=== PATIENT | female | born 1980 | race Caucasian/White ===

== ENCOUNTER 2018-02-09 18:06 | Emergency (ER) | payer SELFPAY ==
--- NOTE | 2018-02-09 18:50 | EDM.PDOC ---
ED HPI GENERAL MEDICAL PROBLEM - General Chief Complaint: Lower Extremity Injury/Pain Stated Complaint: RIGHT KNEE PAIN Time Seen by Provider: 02/09/18 18:20 Source of Information: Reports: Patient History Limitations: Reports: No Limitations - History of Present Illness INITIAL COMMENTS - FREE TEXT/NARRATIVE: c/o b/l knee pain x 2w long h/o knee pain, had lived in [place], had x-rays and MRIs done there, dx with "bone spurs" had been on [employer], now living in [place], will have [place] insurance soon off of her trazodone and SSRI, planning on seeing a local PCP not taking meds for her knee pain, hurts mainly when on her feet works 11a to 5p at [employer], begins to limp 4h into her shift use of APAP and ibuprofen reviewed not using street drugs Review of Systems - Review of Systems Review Of Systems: See Below Constitutional: Reports: No Symptoms Eyes: Reports: No Symptoms Ears: Reports: No Symptoms Nose: Reports: No Symptoms Mouth/Throat: Reports: No Symptoms Respiratory: Reports: No Symptoms Cardiovascular: Reports: No Symptoms GI/Abdominal: Reports: No Symptoms Genitourinary: Reports: No Symptoms Musculoskeletal: Reports: Other (b/l knee pain) Skin: Reports: No Symptoms Neurological: Reports: No Symptoms Psychiatric: Reports: No Symptoms ED EXAM, GENERAL - Physical Exam Exam: See Below Exam Limited By: No Limitations General Appearance: Alert, WD/WN, No Apparent Distress Head: Atraumatic, Normocephalic Neck: Normal Inspection, Supple, Non-Tender, Full Range of Motion Respiratory/Chest: No Respiratory Distress, Lungs Clear Cardiovascular: Regular Rate, Rhythm Extremities: Other (inc'd adipose tissue in thighs, less so in calves, fairly normal circumference at knees, no effusions, no ligament laxity, mild tender on patellar compression and at medial facets b/l, MCL/LCL NT) Neurological: Alert, Oriented, CN II-XII Intact, Normal Cognition, No Motor/ Sensory Deficits Psychiatric: Normal Affect, Normal Mood Skin Exam: Warm, Dry, Intact, Normal Color, No Rash Lymphatic: No Adenopathy Departure - Departure Time of Disposition: 18:49 Disposition: Home, Self-Care 01 Condition: Good Clinical Impression: Patellofemoral syndrome of both knees - Discharge Information Instructions: Patellofemoral Pain Syndrome Referrals: PCP,None [Primary Care Provider] - Additional Instructions: Take acetaminophen 500 mg 2 tabs 4 times a day for 2 weeks, longer if needed. Also take ibuprofen 200 mg 3 tabs 4 times a day, particularly at the start of work and 6 hours later. Use ice on both knees for 10 minutes when you get home from work. See orthopedic surgeon Dr Antony in 1-2 weeks. Establish care with a PCP in 1-2 weeks.
== END 2018-02-09 19:00 | disposition home or self-care (01) ==
LOC: FB.ED 18:06
DX: M22.2X1 Patellofemoral disorders, right knee (principal); M22.2X2 Patellofemoral disorders, left knee
CPT/HCPCS: 99283

== ENCOUNTER 2018-05-16 21:38 | Emergency (ER) | payer SELFPAY ==
[2018-05-16] MEDS ORDERED: Alum Hydroxide/Mag Hydroxide 15 ML, Lidocaine 2% 15 ML PO ONE ×2 (22:09)
--- NOTE | 2018-05-16 22:43 | EDM.PDOC ---
ED HPI GENERAL MEDICAL PROBLEM - General Chief Complaint: Chest Pain Stated Complaint: CHEST PAIN Time Seen by Provider: 05/16/18 22:05 Source of Information: Reports: Patient History Limitations: Reports: No Limitations - History of Present Illness INITIAL COMMENTS - FREE TEXT/NARRATIVE: Michelle comes into [facility] ED with sxs of retrosternal chest pain for about an hour. She was working at [employer] at the time, felt some pain like heartburn, followed by persistent intermittent pains with some numbness in the LUE. There was no gas, belching, or burping, no SOB, no palpitations, sweats or back pain. Her general health is good. She has had bariatric surgery in the past. - Related Data Allergies Allergy/AdvReac Type Severity Reaction Status Date / Time No Known Allergies Allergy Verified 02/09/18 18:52 Home Meds: Home Meds NK [No Known Home Meds] 02/09/18 [History] Past Medical History HEENT History: Reports: Impaired Vision Cardiovascular History: Reports: Heart Murmur Psychiatric History: Reports: Depression - Past Surgical History GI Surgical History: Reports: Bariatric Procedure, Cholecystectomy, Hernia, Abdominal Female Surgical History: Reports: Hysterectomy Social & Family History - Caffeine Use Caffeine Use: Reports: None ED ROS GENERAL - Review of Systems Review Of Systems: ROS reveals no pertinent complaints other than HPI. ED EXAM, GI/ABD - Physical Exam Exam: See Below Exam Limited By: No Limitations General Appearance: Alert, WD/WN, No Apparent Distress, Obese Eyes: Bilateral: Normal Appearance, EOMI Ears: Normal External Exam Nose: Normal Inspection Throat/Mouth: Normal Inspection, Normal Lips, Normal Teeth, Normal Gums, Normal Oropharynx, Normal Voice Head: Normocephalic Neck: Normal Inspection, Supple Respiratory/Chest: No Respiratory Distress, Lungs Clear, Normal Breath Sounds, No Accessory Muscle Use, Chest Non-Tender Cardiovascular: Normal Peripheral Pulses, Regular Rate, Rhythm, No Edema, No Gallop, No JVD, No Murmur, No Rub GI/Abdominal Exam: Normal Bowel Sounds, Soft, Non-Tender, No Organomegaly, No Distention, No Mass (Female) Exam: Deferred Rectal (Female) Exam: Deferred Back Exam: Normal Inspection Extremities: Normal Inspection, Normal Range of Motion, Non-Tender Neurological: Alert, Oriented, CN II-XII Intact, Normal Cognition, No Motor/ Sensory Deficits Psychiatric: Normal Affect, Normal Mood Skin Exam: Warm, Dry, Intact, Normal Color, No Rash Lymphatic: No Adenopathy Course - Vital Signs Text/Narrative:: Following assessment at the [facility] ED, I administered a GI Cocktail with resolution of sxs within 15 minutes. Screening labwork was baseline. - Orders/Labs/Meds Orders: Active Orders 24 hr Category Date Time Status EKG Documentation Completion [RC] ASDIRECTED Care 05/16/18 22:10 Active EKG 12 Lead [EK] Routine Ther 05/16/18 22:09 Ordered Labs: Laboratory Tests 05/16/18 05/16/18 05/16/18 Range/Units 22:18 22:18 22:18 WBC 8.8 (4.5-12.0) X10-3/uL RBC 4.28 (3.23-5.20) x10(6)uL Hgb 12.2 (11.5-15.5) g/dL Hct 36.4 (30.0-51.3) % MCV 85.0 (80-96) fL MCH 28.6 (27.7-33.6) pg MCHC 33.7 (32.2-35.4) g/dL RDW 13.9 (11.5-15.5) % Plt Count 176 (125-369) X10(3)uL MPV 9.1 (7.4-10.4) fL Neut % (Auto) 73.1 (46-82) % Lymph % (Auto) 21.5 (13-37) % [place] % (Auto) 3.9 L (4-12) % Eos % (Auto) 1 (1.0-5.0) % Baso % (Auto) 0 (0-2) % Neut # (Auto) 6.5 (1.6-8.3) # Lymph # (Auto) 1.9 (0.6-5.0) # [place] # (Auto) 0.3 (0.0-1.3) # Eos # (Auto) 0.1 (0.0-0.8) # Baso # (Auto) 0.0 (0.0-0.2) # Sodium 141 (135-145) mmol/L Potassium 4.0 (3.5-5.3) mmol/L Chloride 108 (100-110) mmol/L Carbon Dioxide 28 (21-32) mmol/L BUN 14 (7-18) mg/dL Creatinine 1.0 (0.55-1.02) mg/dL Est Cr Clr Drug Dosing TNP Estimated GFR (MDRD) > 60 (>60) BUN/Creatinine Ratio 14.0 (9-20) Glucose 118 H (80-116) mg/dL Calcium 8.3 L (8.6-10.2) mg/dL Total Bilirubin 0.5 (0.1-1.3) mg/dL AST 9 (5-25) IU/L ALT 14 (12-36) U/L Alkaline Phosphatase 67 (56-112) IU/L Troponin I < 0.017 L (<0.017-0.056) ng/mL Total Protein 6.9 (6.0-8.0) g/dL Albumin 3.1 L (3.5-5.2) g/dL Globulin 3.8 g/dL Albumin/Globulin Ratio 0.8 Meds: Medications Discontinued Medications Generic Name Dose Route Start Last Admin Trade Name Freq PRN Reason Stop Dose Admin Al Hydroxide/Mg Hydroxide 15 0 ml 05/16/18 22:09 05/16/18 22:15 ml/ Lidocaine HCl 15 ml PO 05/16/18 22:10 30 ml ONETIME ONE Administration Departure - Departure Time of Disposition: 22:56 Disposition: Home, Self-Care 01 Condition: Good Clinical Impression: Atypical chest pain - Discharge Information *PRESCRIPTION DRUG MONITORING PROGRAM REVIEWED*: Not Applicable *COPY OF PRESCRIPTION DRUG MONITORING REPORT IN PATIENT HERNAN: Not Applicable Referrals: PCP,None [Primary Care Provider] - Forms: ED Department Discharge - Problem List & Annotations (1) Atypical chest pain SNOMED Code(s): 912566836 Code(s): R07.89 - OTHER CHEST PAIN Status: Acute Current Visit: Yes Annotation/Comment:: Atypical chest pain, likely GERD from clinical response to treatment. She is discharged, activity as tolerated. - Problem List Review Problem List Initiated/Reviewed/Updated: Yes - My Orders Last 24 Hours: My Active Orders 05/16/18 22:09 EKG 12 Lead [EK] Routine 05/16/18 22:10 EKG Documentation Completion [RC] ASDIRECTED - Assessment/Plan Last 24 Hours: My Active Orders 05/16/18 22:09 EKG 12 Lead [EK] Routine 05/16/18 22:10 EKG Documentation Completion [RC] ASDIRECTED Plan: Follow up with PCP if needed.
== END 2018-05-16 23:45 | disposition home or self-care (01) ==
LOC: FB.ED 21:38
DX: R07.89 Other chest pain (principal); Z98.84 Bariatric surgery status
CPT/HCPCS: 36415; 80053; 84484; 85025; 93005; 99285; A9270

== ENCOUNTER 2019-07-30 15:32 | Emergency (ER) | payer SELFPAY ==
--- NOTE | 2019-07-30 16:14 | EDM.PDOC ---
ED HPI GENERAL MEDICAL PROBLEM - General Stated Complaint: UNABLE TO HEAR Time Seen by Provider: 07/30/19 15:45 Source of Information: Reports: Patient History Limitations: Reports: No Limitations - History of Present Illness INITIAL COMMENTS - FREE TEXT/NARRATIVE: Patient presented to the ED because she woke today and is not able to hear well on both ears. She have cough and cold, runny nose for 3 days. He denies any fever or chills. 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 - Past Surgical History GI Surgical History: Reports: Bariatric Procedure, Cholecystectomy, Hernia, Abdominal Female Surgical History: Reports: Hysterectomy Musculoskeletal Surgical History: Reports: Other (See Below) Other Musculoskeletal Surgeries/Procedures:: Hx surgery on left and right hands. Social & Family History - Family History Family Medical History: Noncontributory - Caffeine Use Caffeine Use: Reports: Coffee, Soda ED ROS ENT - Review of Systems Review Of Systems: See Below Constitutional: Reports: Fatigue HEENT: Reports: Hearing Loss, Rhinitis Respiratory: Reports: Cough. Denies: Shortness of Breath Cardiovascular: Reports: No Symptoms Endocrine: Reports: No Symptoms GI/Abdominal: Reports: No Symptoms, Nausea : Reports: No Symptoms Musculoskeletal: Reports: No Symptoms Skin: Reports: No Symptoms ED EXAM, ENT - Physical Exam Exam: See Below Exam Limited By: No Limitations General Appearance: Alert, WD/WN, No Apparent Distress Eye Exam: Bilateral Eye: PERRL Ears: Normal External Exam, Other (bilateral middle ear effusion) Nose: Normal Inspection, Normal Mucousa Mouth/Throat: Normal Inspection, Normal Gums, Normal Lips, Normal Oropharynx Head: Atraumatic, Normocephalic Neck: Normal Inspection, Supple, Non-Tender, Full Range of Motion Respiratory/Chest: No Respiratory Distress, Lungs Clear, Normal Breath Sounds Cardiovascular: Normal Peripheral Pulses, Regular Rate, Rhythm, No Edema, No Gallop GI/Abdominal: Normal Bowel Sounds, Soft, Non-Tender Extremities: Normal Inspection, Normal Range of Motion Neurological: Alert, Oriented, CN II-XII Intact, Normal Cognition Course - Vital Signs Last Recorded V/S: Last Vital Signs Temp 36.7 C 07/30/19 15:40 Pulse 83 07/30/19 15:40 Resp 16 07/30/19 15:40 BP 138/74 07/30/19 15:40 Pulse Ox 98 07/30/19 15:40 Departure - Departure Time of Disposition: 16:10 Disposition: Home, Self-Care 01 Condition: Good Clinical Impression: Serous otitis media - Discharge Information Prescriptions: Hydrocort/Neomycin/Polymyxin B [Cortisporin Otic Soln] 10 ml EARBOTH TID #1 bottle Instructions: Otitis Media With Effusion, Pediatric Referrals: PCP,None [Primary Care Provider] - Forms: ED Department Discharge Additional Instructions: Please read discharge instructions on serous otitis media cortisporin otic suspension, 3 drops to to both ears for 1 week follow up if symptoms persist after a week
== END 2019-07-30 16:20 | disposition home or self-care (01) ==
LOC: FB.ED 15:32
DX: H65.93 Unspecified nonsuppurative otitis media, bilateral (principal)
CPT/HCPCS: 99283

== ENCOUNTER 2019-12-13 23:15 | Emergency (ER) | payer SELFPAY ==
[2019-12-13] MEDS ORDERED: Codeine/guaiFENesin 10-100 MG/5 ML Syrup 5 ML Cup PO ONE (23:30)
[2019-12-13] MEDS ORDERED: Melatonin 3 MG Tab PO PRN (23:31)
--- NOTE | 2019-12-13 23:46 | EDM.PDOC ---
ED HPI GENERAL MEDICAL PROBLEM - General Chief Complaint: Respiratory Problem Stated Complaint: Coughing Time Seen by Provider: 12/13/19 23:15 Source of Information: Reports: Patient History Limitations: Reports: No Limitations - History of Present Illness INITIAL COMMENTS - FREE TEXT/NARRATIVE: Patient presented to the ED because of persistent cough x2 days followed by dyspnea although her oxygen saturation is 97% on RA. There is no fever,chills, or body malaise. No N/V/D. 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 - Past Surgical History GI Surgical History: Reports: Bariatric Procedure, Cholecystectomy, Hernia, Abdominal Female Surgical History: Reports: Hysterectomy Musculoskeletal Surgical History: Reports: Other (See Below) Other Musculoskeletal Surgeries/Procedures:: Hx surgery on left and right hands. Social & Family History - Family History Family Medical History: Noncontributory - Caffeine Use Caffeine Use: Reports: Coffee, Soda ED ROS GENERAL - Review of Systems Review Of Systems: See Below Constitutional: Denies: Fever, Chills, Malaise, Weakness HEENT: Reports: No Symptoms, Rhinitis Respiratory: Reports: Shortness of Breath, Cough. Denies: Wheezing, Sputum Cardiovascular: Reports: No Symptoms Endocrine: Reports: No Symptoms GI/Abdominal: Reports: No Symptoms : Reports: No Symptoms Musculoskeletal: Reports: No Symptoms Skin: Reports: No Symptoms Neurological: Reports: No Symptoms Psychiatric: Reports: No Symptoms ED EXAM, GENERAL - Physical Exam Exam: See Below Exam Limited By: No Limitations General Appearance: Alert, No Apparent Distress Ears: Normal External Exam, Normal Canal, Hearing Grossly Normal Nose: Normal Inspection, Normal Mucosa, No Blood Throat/Mouth: Normal Inspection, Normal Lips, Normal Teeth Head: Atraumatic, Normocephalic Neck: Normal Inspection, Supple, Non-Tender, Full Range of Motion Respiratory/Chest: No Respiratory Distress, Lungs Clear, Normal Breath Sounds Cardiovascular: Normal Peripheral Pulses, Regular Rate, Rhythm, No Edema Course - Vital Signs Text/Narrative:: -[id number] Last Recorded V/S: Last Vital Signs Temp 35.9 C L 12/13/19 23:15 Pulse 59 L 12/13/19 23:15 Resp 18 12/13/19 23:15 BP 154/96 H 12/13/19 23:15 Pulse Ox 97 12/13/19 23:15 - Orders/Labs/Meds Orders: Active Orders 24 hr Category Date Time Status Isolation [COMM] Stat Oth 12/13/19 23:31 Ordered Meds: Medications Discontinued Medications Generic Name Dose Route Start Last Admin Trade Name Freq PRN Reason Stop Dose Admin Guaifenesin/Codeine Phosphate 10 ml 12/13/19 23:30 Robitussin Ac PO 12/13/19 23:31 ONETIME ONE Melatonin 6 mg 12/13/19 23:31 Melatonin PO BEDTIME PRN Insomnia Departure - Departure Time of Disposition: 23:45 Disposition: Home, Self-Care 01 Condition: Good Clinical Impression: URI (upper respiratory infection) - Discharge Information Instructions: Viral Respiratory Infection, [id number] Referrals: PCP,None [Primary Care Provider] - Forms: ED Department Discharge Additional Instructions: Please read discahrge instructions on viral URI frequent hand washing Increase oral fluids Robitussin DM, take 2 tsp every 4-6 hours as needed for cough)over the counter) Follow up your covid test with yout primary clinic in 3-5 days Sepsis Event Note - Focused Exam Vital Signs: Vital Signs Temp Pulse Resp BP Pulse Ox 12/13/19 23:15 35.9 C L 59 L 18 154/96 H 97 Date Exam was Performed: 12/13/19 Time Exam was Performed: 23:46 - My Orders Last 24 Hours: My Active Orders 12/13/19 23:31 Isolation [COMM] Stat - Assessment/Plan Last 24 Hours: My Active Orders 12/13/19 23:31 Isolation [COMM] Stat
== END 2019-12-14 00:10 | disposition home or self-care (01) ==
LOC: FB.ED 23:21
DX: J06.9 Acute upper respiratory infection, unspecified (principal)
CPT/HCPCS: 36415; 99282; 99284; A9270-GY; U0002

== ENCOUNTER 2020-07-04 02:59 | Observation (INO) | payer SELFPAY ==
[2020-07-04] MEDS ORDERED: Sodium Chloride 0.9% 10 ML Syringe FLUSH PRN (03:09)
[2020-07-04] MEDS ORDERED: LORazepam 2 MG/ML SDV IVPUSH ONE (03:21)
[2020-07-04] MEDS ORDERED: levETIRAcetam 1,500 MG in Sodium Chloride 0.9% 100 ML IV ONE (03:28)
--- NOTE | 2020-07-04 03:50 | EDM.PDOC ---
ED HPI GENERAL MEDICAL PROBLEM - General Stated Complaint: SEIZURE Time Seen by Provider: 07/04/20 03:10 Source of Information: Reports: Patient, EMS History Limitations: Reports: No Limitations - History of Present Illness INITIAL COMMENTS - FREE TEXT/NARRATIVE: Patient presented to the ED with her friend because of an apparent seizure. She had a couple of drinks at he bar tonight then she did laundry with her friend. While in the laundry area she c/o having chills and then she started to have generalized body shaking. She was unresponsive during the the time she is shaking but is able to recall everything afterwards. She c/o frontal headache and a little bit confused according to her friend. The entire episode lasted for less than 5 minutes. There is no associated fever, cough/cold, nausea,vomiting area. She just head a COVID test a week ago which was negative. According to her friend she is under emotional distress after breaking up with her girl friend 2 weeks ago. 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 - Past Surgical History GI Surgical History: Reports: Bariatric Procedure, Cholecystectomy, Hernia, Abdominal Female Surgical History: Reports: Hysterectomy Musculoskeletal Surgical History: Reports: Other (See Below) Other Musculoskeletal Surgeries/Procedures:: Hx surgery on left and right hands. Social & Family History - Family History Family Medical History: Noncontributory - Caffeine Use Caffeine Use: Reports: Coffee, Soda ED ROS GENERAL - Review of Systems Review Of Systems: See Below Constitutional: Reports: Chills. Denies: Fever HEENT: Reports: No Symptoms Respiratory: Reports: No Symptoms Cardiovascular: Reports: No Symptoms Endocrine: Reports: No Symptoms GI/Abdominal: Reports: No Symptoms : Reports: No Symptoms Musculoskeletal: Reports: No Symptoms Skin: Reports: No Symptoms Neurological: Reports: Confusion, Headache Psychiatric: Reports: No Symptoms Hematologic/Lymphatic: Reports: No Symptoms Immunologic: Reports: No Symptoms ED EXAM, GENERAL - Physical Exam Exam: See Below Exam Limited By: No Limitations General Appearance: Alert, No Apparent Distress Eye Exam: Bilateral Eye: PERRL Ears: Normal External Exam Nose: Normal Inspection, Normal Mucosa Throat/Mouth: Normal Inspection, Normal Lips, Normal Teeth Head: Atraumatic, Normocephalic Neck: Normal Inspection, Supple, Non-Tender, Full Range of Motion Respiratory/Chest: No Respiratory Distress, Lungs Clear, Normal Breath Sounds Cardiovascular: Normal Peripheral Pulses, Regular Rate, Rhythm, No Edema, No Gallop GI/Abdominal: Normal Bowel Sounds, Soft, Non-Tender, No Organomegaly Back Exam: Normal Inspection, Full Range of Motion Extremities: Normal Inspection, Normal Range of Motion, Non-Tender Neurological: Alert, Oriented, CN II-XII Intact, Normal Cognition Psychiatric: Anxious, Tearful Skin Exam: Warm Course - Vital Signs Text/Narrative:: Labs/CXR,Head CT was discussed with patient Ativan 2 mg IV x1 Keppra 1500 mg IV x1 Video EEG as an outpatient to differentiate if it's a true seizure vs pseudoseizure Last Recorded V/S: Last Vital Signs Temp 36.6 C 07/04/20 02:59 Pulse 87 07/04/20 02:59 Resp 16 07/04/20 02:59 BP 131/98 H 07/04/20 02:59 Pulse Ox 100 07/04/20 02:59 - Orders/Labs/Meds Orders: Active Orders 24 hr Category Date Time Status Patient Status [ADT] Routine ADT 07/04/20 03:57 Ordered Oxygen Therapy [RC] PRN Care 07/04/20 03:57 Ordered Pulse Oximetry [RC] CONTINUOUS Care 07/04/20 03:58 Ordered VTE/DVT Education [RC] Per Unit Routine Care 07/04/20 03:57 Ordered Vital Signs [RC] Q4H Care 07/04/20 03:57 Ordered Regular Diet [DIET] Diet 07/04/20 Breakfast Ordered Chest 1V Frontal [CR] Stat Exams 07/04/20 03:09 Taken Head wo Cont [CT] Stat Exams 07/04/20 03:09 Ordered DRUG SCREEN, URINE ALERE [URCHEM] Stat Lab 07/04/20 03:09 Ordered Acetaminophen [TylenoL] Med 07/04/20 03:56 Ordered 650 mg PO Q4H PRN DULoxetine [Cymbalta] Med 07/04/20 09:00 Ordered 60 mg PO DAILY Docusate Sodium/Sennosides [Senna Plus] Med 07/04/20 03:56 Ordered 1 tab PO BID PRN Ondansetron [Zofran] Med 07/04/20 03:56 Ordered 4 mg IV Q4H PRN Sodium Chloride 0.9% [Saline Flush] Med 07/04/20 03:09 Active 10 ml FLUSH ASDIRECTED PRN Zolpidem [Ambien] Med 07/04/20 03:56 Ordered 10 mg PO BEDTIME PRN hydrOXYzine HCL [Atarax] Med 07/04/20 09:00 Ordered 25 mg PO TID levETIRAcetam [Keppra] 1,500 mg Med 07/04/20 04:15 Ordered Sodium Chloride 0.9% [Normal Saline] 100 ml IV Q12H Saline Lock Insert [OM.PC] Routine Oth 07/04/20 03:09 Ordered Sequential Compression Device [OM.PC] Per Unit Routine Oth 07/04/20 03:59 Ordered Resuscitation Status Routine Resus Stat 07/04/20 03:56 Ordered Medication Orders Acetaminophen (Tylenol) 650 mg PO Q4H PRN PRN Reason: Pain (Mild 1-3)/fever Duloxetine HCl (Cymbalta) 60 mg PO DAILY IDA Hydroxyzine HCl (Atarax) 25 mg PO TID IDA Ondansetron HCl (Zofran) 4 mg IV Q4H PRN PRN Reason: Nausea/Vomiting Senna/Docusate Sodium (Senna Plus) 1 tab PO BID PRN PRN Reason: Constipation Sodium Chloride (Saline Flush) 10 ml FLUSH ASDIRECTED PRN PRN Reason: Keep Vein Open Last Admin: 07/04/20 03:39 Dose: 10 ml Documented by: RORO Zolpidem Tartrate (Ambien) 10 mg PO BEDTIME PRN PRN Reason: Sleep Labs: Laboratory Tests 07/04/20 07/04/20 07/04/20 Range/Units 03:20 03:20 03:20 WBC 8.1 (4.5-12.0) X10-3/uL RBC 4.17 (3.23-5.20) x10(6)uL Hgb 12.9 (11.5-15.5) g/dL Hct 39.2 (30.0-51.3) % MCV 94.0 (80-96) fL MCH 31.0 (27.7-33.6) pg MCHC 33.0 (32.2-35.4) g/dL RDW 12.4 (11.5-15.5) % Plt Count 202 (125-369) X10(3)uL MPV 9.0 (7.4-10.4) fL Neut % (Auto) 63.5 (46-82) % Lymph % (Auto) 29.4 (13-37) % [place] % (Auto) 5.3 (4-12) % Eos % (Auto) 1 (1.0-5.0) % Baso % (Auto) 1 (0-2) % Neut # (Auto) 5.2 (1.6-8.3) # Lymph # (Auto) 2.4 (0.6-5.0) # [place] # (Auto) 0.4 (0.0-1.3) # Eos # (Auto) 0.1 (0.0-0.8) # Baso # (Auto) 0.0 (0.0-0.2) # Sodium 140 (135-145) mmol/L Potassium 3.8 (3.5-5.3) mmol/L Chloride 104 (100-110) mmol/L Carbon Dioxide 24 (21-32) mmol/L BUN 9 (7-18) mg/dL Creatinine 1.0 (0.55-1.02) mg/dL Est Cr Clr Drug Dosing TNP Estimated GFR (MDRD) > 60 (>60) BUN/Creatinine Ratio 9.0 (9-20) Glucose 106 (80-116) mg/dL Calcium 8.9 (8.6-10.2) mg/dL Total Bilirubin 0.5 (0.1-1.3) mg/dL AST 14 D (5-25) IU/L ALT 19 D (12-36) U/L Alkaline Phosphatase 57 (56-112) IU/L Total Protein 7.0 (6.0-8.0) g/dL Albumin 3.5 (3.5-5.2) g/dL Globulin 3.5 g/dL Albumin/Globulin Ratio 1.0 TSH, Ultra Sensitive (0.36-3.74) IU/mL Urine Color (YELLOW) Urine Appearance (CLEAR) Urine pH (5.0-6.5) Ur Specific [place] (1.010-1.025) Urine Protein (NEGATIVE) mg/dL Urine Glucose (UA) (NORMAL) mg/dL Urine Ketones (NEGATIVE) mg/dL Urine Occult Blood (NEGATIVE) Urine Nitrite (NEGATIVE) Urine Bilirubin (NEGATIVE) Urine Urobilinogen (NEGATIVE) mg/dL Ur Leukocyte Esterase (NEGATIVE) Urine RBC (0-5) Urine WBC (0-5) Ur Squamous Epith Cells (NS,R,O) Urine Bacteria (NS) Urine HCG, Qual (NEGATIVE) Ethyl Alcohol < 0.03 (<0.03) % 07/04/20 07/04/20 07/04/20 Range/Units 03:20 03:40 03:40 WBC (4.5-12.0) X10-3/uL RBC (3.23-5.20) x10(6)uL Hgb (11.5-15.5) g/dL Hct (30.0-51.3) % MCV (80-96) fL MCH (27.7-33.6) pg MCHC (32.2-35.4) g/dL RDW (11.5-15.5) % Plt Count (125-369) X10(3)uL MPV (7.4-10.4) fL Neut % (Auto) (46-82) % Lymph % (Auto) (13-37) % [place] % (Auto) (4-12) % Eos % (Auto) (1.0-5.0) % Baso % (Auto) (0-2) % Neut # (Auto) (1.6-8.3) # Lymph # (Auto) (0.6-5.0) # [place] # (Auto) (0.0-1.3) # Eos # (Auto) (0.0-0.8) # Baso # (Auto) (0.0-0.2) # Sodium (135-145) mmol/L Potassium (3.5-5.3) mmol/L Chloride (100-110) mmol/L Carbon Dioxide (21-32) mmol/L BUN (7-18) mg/dL Creatinine (0.55-1.02) mg/dL Est Cr Clr Drug Dosing Estimated GFR (MDRD) (>60) BUN/Creatinine Ratio (9-20) Glucose (80-116) mg/dL Calcium (8.6-10.2) mg/dL Total Bilirubin (0.1-1.3) mg/dL AST (5-25) IU/L ALT (12-36) U/L Alkaline Phosphatase (56-112) IU/L Total Protein (6.0-8.0) g/dL Albumin (3.5-5.2) g/dL Globulin g/dL Albumin/Globulin Ratio TSH, Ultra Sensitive 2.43 (0.36-3.74) IU/mL Urine Color Yellow (YELLOW) Urine Appearance Clear (CLEAR) Urine pH 6.0 (5.0-6.5) Ur Specific [place] 1.015 (1.010-1.025) Urine Protein Negative (NEGATIVE) mg/dL Urine Glucose (UA) Normal (NORMAL) mg/dL Urine Ketones 15 H (NEGATIVE) mg/dL Urine Occult Blood Negative (NEGATIVE) Urine Nitrite Negative (NEGATIVE) Urine Bilirubin Negative (NEGATIVE) Urine Urobilinogen Normal (NEGATIVE) mg/dL Ur Leukocyte Esterase Negative (NEGATIVE) Urine RBC 0-5 (0-5) Urine WBC 0-5 (0-5) Ur Squamous Epith Cells Occasional (NS,R,O) Urine Bacteria Rare H (NS) Urine HCG, Qual Negative (NEGATIVE) Ethyl Alcohol (<0.03) % Meds: Medications Generic Name Dose Route Start Last Admin Trade Name Freq PRN Reason Stop Dose Admin Acetaminophen 650 mg 07/04/20 03:56 Tylenol PO Q4H PRN Pain (Mild 1-3)/fever Duloxetine HCl 60 mg 07/04/20 09:00 Cymbalta PO DAILY IDA Hydroxyzine HCl 25 mg 07/04/20 09:00 Atarax PO TID IDA Ondansetron HCl 4 mg 07/04/20 03:56 Zofran IV Q4H PRN Nausea/Vomiting Senna/Docusate Sodium 1 tab 07/04/20 03:56 Senna Plus PO BID PRN Constipation Sodium Chloride 10 ml 07/04/20 03:09 07/04/20 03:39 Saline Flush FLUSH 10 ml ASDIRECTED PRN Administration Keep Vein Open Zolpidem Tartrate 10 mg 07/04/20 03:56 Ambien PO BEDTIME PRN Sleep Discontinued Medications Generic Name Dose Route Start Last Admin Trade Name Freq PRN Reason Stop Dose Admin Levetiracetam 1,500 mg/ Sodium 115 mls @ 400 mls/hr 07/04/20 03:28 07/04/20 03:38 Chloride IV 07/04/20 03:42 400 mls/hr ONETIME ONE Administration Lorazepam 2 mg 07/04/20 03:21 07/04/20 03:10 Ativan IVPUSH 07/04/20 03:22 2 mg ONETIME ONE Administration Departure - Departure Time of Disposition: 03:55 Disposition: Refer to Observation Condition: Good Clinical Impression: Unresponsive episode, Seizure - Discharge Information Sepsis Event Note (ED) - Focused Exam Vital Signs: Vital Signs Temp Pulse Resp BP Pulse Ox 07/04/20 02:59 36.6 C 87 16 131/98 H 100 - My Orders Last 24 Hours: My Active Orders 07/04/20 03:09 Chest 1V Frontal [CR] Stat Head wo Cont [CT] Stat DRUG SCREEN, URINE ALERE [URCHEM] Stat Sodium Chloride 0.9% [Saline Flush] 10 ml FLUSH ASDIRECTED PRN Saline Lock Insert [OM.PC] Routine 07/04/20 03:56 Acetaminophen [TylenoL] 650 mg PO Q4H PRN Docusate Sodium/Sennosides [Senna Plus] 1 tab PO BID PRN Ondansetron [Zofran] 4 mg IV Q4H PRN Zolpidem [Ambien] 10 mg PO BEDTIME PRN Resuscitation Status Routine 07/04/20 03:57 Patient Status [ADT] Routine Oxygen Therapy [RC] PRN VTE/DVT Education [RC] Per Unit Routine Vital Signs [RC] Q4H 07/04/20 03:58 Pulse Oximetry [RC] CONTINUOUS 07/04/20 03:59 Sequential Compression Device [OM.PC] Per Unit Routine 07/04/20 04:15 levETIRAcetam [Keppra] 1,500 mg Sodium Chloride 0.9% [Normal Saline] 100 ml IV Q12H 07/04/20 Breakfast Regular Diet [DIET] 07/04/20 09:00 DULoxetine [Cymbalta] 60 mg PO DAILY hydrOXYzine HCL [Atarax] 25 mg PO TID - Assessment/Plan Last 24 Hours: My Active Orders 07/04/20 03:09 Chest 1V Frontal [CR] Stat Head wo Cont [CT] Stat DRUG SCREEN, URINE ALERE [URCHEM] Stat Sodium Chloride 0.9% [Saline Flush] 10 ml FLUSH ASDIRECTED PRN Saline Lock Insert [OM.PC] Routine 07/04/20 03:56 Acetaminophen [TylenoL] 650 mg PO Q4H PRN Docusate Sodium/Sennosides [Senna Plus] 1 tab PO BID PRN Ondansetron [Zofran] 4 mg IV Q4H PRN Zolpidem [Ambien] 10 mg PO BEDTIME PRN Resuscitation Status Routine 07/04/20 03:57 Patient Status [ADT] Routine Oxygen Therapy [RC] PRN VTE/DVT Education [RC] Per Unit Routine Vital Signs [RC] Q4H 07/04/20 03:58 Pulse Oximetry [RC] CONTINUOUS 07/04/20 03:59 Sequential Compression Device [OM.PC] Per Unit Routine 07/04/20 04:15 levETIRAcetam [Keppra] 1,500 mg Sodium Chloride 0.9% [Normal Saline] 100 ml IV Q12H 07/04/20 Breakfast Regular Diet [DIET] 07/04/20 09:00 DULoxetine [Cymbalta] 60 mg PO DAILY hydrOXYzine HCL [Atarax] 25 mg PO TID
[2020-07-04] MEDS ORDERED: Ondansetron 4 MG/2 ML SDV IV PRN (03:56)
[2020-07-04] MEDS ORDERED: Zolpidem 5 MG Tab PO PRN ×2 (03:56→09:08)
[2020-07-04] MEDS ORDERED: levETIRAcetam 1,500 MG in Sodium Chloride 0.9% 100 ML IV SCH (04:15)
[2020-07-04] MEDS: Acetaminophen 325 MG Tab PO PRN ×3 (04:55→16:03)
[2020-07-04] MEDS ORDERED: hydrOXYzine HCl 25 MG Tab PO SCH (09:00)
[2020-07-04] MEDS ORDERED: hydrOXYzine HCl 25 MG Tab PO PRN (09:39)
[2020-07-04] MEDS: DULoxetine 60 MG Cap PO SCH (10:08)
--- NOTE | 2020-07-04 12:10 | CR ---
INDICATION: Altered level of consciousness. CHEST, ONE VIEW: AP portable upright view of the chest 07/04/20 - no comparison. Heart did not appear enlarged. Overlying EKG leads are noted. The aorta is slightly tortuous. Pulmonary vasculature appears somewhat prominent in the upper lung chin, raising question of mild or early CHF and/or fluid overload or other etiology of pulmonary vascular congestion - correlate clinically. A definite active infiltrate or effusion was not identified. Exogenous obesity is noted. MTDD
--- NOTE | 2020-07-04 12:38 | HP ---
ADMISSION DATE: 07/04/2020 History is from the patient, the ER record, and her clinic records. CHIEF COMPLAINT: Shaking episode. HISTORY OF PRESENT ILLNESS: Ms. Hernandez is a 40-year-old woman from [place], [place], with a history of gastric sleeve procedure, migraine disorder, depression, and insomnia. She was brought to the emergency room by a friend after an episode of shaking noted at the [facility]. According to Ms. Hernandez, she states that she remembers the whole event. History taken by Dr. James in the emergency room stated that she had a very brief loss of consciousness, and the whole episode of shaking, passing out, etc., was less than 5 minutes with no apparent significant postictal state, incontinence, etc. Ms. Hernandez has been on Topamax, sumatriptan, hydroxyzine, and Cymbalta for depression and migraines. In addition to this, in the last couple of weeks, she has been taking Ambien 10 mg at bedtime. She states that while at the [facility], they decided to go to the bar and have a few drinks. Michelle states she drank 5 [employer] Lights, and after they returned back to the [facility] for the close, this episode happened. She has no prior or family history of seizure disorder and states that she has been on these medications for a long time, many, many months, except for the Ambien which is more recent. PAST MEDICAL HISTORY: Gastric sleeve procedure for obesity, she states she lost weight from about 325 down to 275 from this and still has to watch what she eats. She is status post cholecystectomy, abdominal hysterectomy, carpal tunnel surgeries bilaterally, and tendon surgery on the wrists bilaterally. She has a history of migraines, depression, and insomnia. She has a history of asthma. MEDICATIONS: 1. Ambien 10 mg at bedtime for the past 2 weeks. 2. Hydroxyzine 25 mg t.i.d. 3. Cymbalta 120 mg daily. 4. Topamax 50 mg at bedtime. 5. Maxalt or Imitrex p.r.n. headache. 6. Albuterol HFA p.r.n. ALLERGIES: None known. HABITS: She says she has drank this amount of alcohol in the past without problems. REVIEW OF SYSTEMS: GENERAL: No previous seizures or syncopal episodes. HEENT: No recent change in hearing or vision, although she recently did get new glasses. No sore throat or URI. CHEST: No cough or purulent sputum. No chest pain or palpitations. ABDOMEN: No abdominal pain or nausea. She does have to limit her oral intake, however, because of the gastric sleeve procedure. She does also report occasional diarrhea. No hematochezia or melena. GENITOURINARY: No hematuria or UTI symptoms. MUSCULOSKELETAL: No joint inflammation. She reports occasional swelling in her feet at night, but it is down to normal by mornings. SKIN: No skin rash. PHYSICAL EXAMINATION: GENERAL: She is somewhat groggy this morning and is examined while lying in bed. VITAL SIGNS: Blood pressure 138/77, pulse is 96 and regular, respirations 16, O2 saturation 98% on room air, temperature 98.2, and weight 283 pounds. SKIN: No rash. HEENT: Exam shows pupils to be equal and reactive. TMs clear. Oropharynx is clear. LUNGS: Clear to the bases. HEART: Regular without murmur, rub, or gallop. There is an occasional extrasystole. ABDOMEN: Obese, soft, and nontender. No masses. No organomegaly. EXTREMITIES: Warm, well perfused. Good dorsalis pedis pulses. No edema. LABORATORY DATA: Hemoglobin 12.9. Electrolytes normal. Creatinine 1.0. TSH 2.43. Urinalysis negative. Alcohol level less than 0.03. Drug screen negative. ASSESSMENT: Episode of shaking that she describes as symmetric bilateral hands, like she was having shivers, followed by an apparent brief unresponsive episode and no obvious postictal state. This does not sound like a seizure. This may well be the combination of relatively recent initiation of Ambien and her multiple other medications with 5 bottles of beer on the top of it. PLAN: She has been loaded with Keppra; however, we will hold any further Keppra at this time. Continue her duloxetine and her Topamax and anticipate discharge later today if she feels like she is back to normal. /[id number] RO/SYDNEYL
[2020-07-04] MEDS ORDERED: SUMAtriptan 50 MG Tab PO ONE (16:28)
[2020-07-04] MEDS ORDERED: Topiramate 50 MG Tab PO SCH (21:00)
[2020-07-05] MEDS: Acetaminophen 325 MG Tab PO PRN (05:12)
[2020-07-05] MEDS: DULoxetine 60 MG Cap PO SCH (08:40)
--- NOTE | 2020-07-05 09:23 | PCM.PN ---
- General Info Date of Service: 07/05/20 Admission Dx/Problem (Free Text): Patient has done well since she's been in the hospital. No signs of seizures, shaking. - Review of Systems General: Reports: No Symptoms HEENT: Reports: No Symptoms Pulmonary: Reports: No Symptoms Cardiovascular: Reports: No Symptoms Neurological: Reports: No Symptoms - Patient Data Vitals - Most Recent: Last Vital Signs Temp 98 F 07/05/20 00:00 Pulse 63 07/05/20 00:00 Resp 18 07/05/20 00:00 BP 133/91 H 07/05/20 00:00 Pulse Ox 98 07/05/20 00:00 Weight - Most Recent: 283 lb 3 oz Med Orders - Current: Current Medications Acetaminophen (Tylenol) 650 mg PO Q4H PRN PRN Reason: Pain (Mild 1-3)/fever Last Admin: 07/05/20 05:12 Dose: 650 mg Documented by: Duloxetine HCl (Cymbalta) 60 mg PO DAILY [facility] Last Admin: 07/05/20 08:40 Dose: 60 mg Documented by: Hydroxyzine HCl (Atarax) 25 mg PO TID PRN PRN Reason: ANXIETY Sodium Chloride (Saline Flush) 10 ml FLUSH ASDIRECTED PRN PRN Reason: Keep Vein Open Last Admin: 07/04/20 03:39 Dose: 10 ml Documented by: Topiramate (Topamax) 50 mg PO BEDTIME IDA Last Admin: 07/04/20 20:11 Dose: 50 mg Documented by: Zolpidem Tartrate (Ambien) 5 mg PO BEDTIME PRN PRN Reason: Sleep Last Admin: 07/04/20 21:54 Dose: 5 mg Documented by: Discontinued Medications Hydroxyzine HCl (Atarax) 25 mg PO TID IDA Levetiracetam 1,500 mg/ Sodium (Chloride) 115 mls @ 400 mls/hr IV ONETIME ONE Stop: 07/04/20 03:42 Last Admin: 07/04/20 03:38 Dose: 400 mls/hr Documented by: Levetiracetam 1,500 mg/ Sodium (Chloride) 115 mls @ 400 mls/hr IV Q12H IDA Last Admin: 07/04/20 04:20 Dose: Not Given Documented by: Lorazepam (Ativan) 2 mg IVPUSH ONETIME ONE Stop: 07/04/20 03:22 Last Admin: 07/04/20 03:10 Dose: 2 mg Documented by: Ondansetron HCl (Zofran) 4 mg IV Q4H PRN PRN Reason: Nausea/Vomiting Senna/Docusate Sodium (Senna Plus) 1 tab PO BID PRN PRN Reason: Constipation Sumatriptan Succinate (Imitrex) 100 mg PO ONETIME ONE Stop: 07/04/20 16:29 Last Admin: 07/04/20 17:04 Dose: 100 mg Documented by: Zolpidem Tartrate (Ambien) 10 mg PO BEDTIME PRN PRN Reason: Sleep Last Admin: 07/04/20 04:55 Dose: 10 mg Documented by: - Exam General: Alert, Oriented, Cooperative Lungs: Normal Respiratory Effort Neurological: No New Focal Deficit Sepsis Event Note - Evaluation Sepsis Screening Result: No Definite Risk - Focused Exam Vital Signs: Vital Signs Temp Pulse Resp BP Pulse Ox 07/05/20 00:00 98 F 63 18 133/91 H 98 07/04/20 22:00 135/92 H - Problem List & Annotations (1) Seizure-like activity SNOMED Code(s): 183875881 Code(s): R56.9 - UNSPECIFIED CONVULSIONS Status: Acute Current Visit: Yes - Problem List Review Problem List Initiated/Reviewed/Updated: Yes - My Orders Last 24 Hours: My Active Orders 07/05/20 09:19 Ready for Discharge [RC] PER UNIT ROUTINE - Plan Plan:: Patient is been asymptomatic since she's been hospital. Dr. Oswald stop the Keppra and she was groggy from it. She's had no other shaking. We'll discharge to home with no driving until she sees her primary provider.
--- NOTE | 2020-07-05 09:27 | PCM.DCSUM1 ---
Discharge Summary - Hospital Course Free Text/Narrative:: This is a 40-year-old female patient that comes in to the ER for shaking. She was at the [facility] and then she went with her friend to drink 5 beers. She is on Cymbalta, Topamax, hydroxyzine, Ambien and other medications for psychological condition. She states she just started shaken all over like she was cold. Her friend checked her and she wasn't cold so they brought her to the ER. She did not pass out, lose consciousness was not postictal. No percent family history of seizure disorder. She is not ill. She came to the hospital and had a CBC, chem 12 and urine drug screen all negative. CT scan showed no abnormalities. She was loaded with Keppra in the ER then sent to the floor for observation. Dr. Oswald stop the Keppra and she had no other activity like this. Most likely not seizures but can not be 100% certain. We'll discharge to home on a regular medications with no driving. Have her recheck with her primary provider in one week. Diagnosis: Stroke: No - Discharge Data Discharge Date: 07/05/20 Discharge Disposition: Home, Self-Care 01 Condition: Fair - Referral to Home Health Primary Care Physician: Sonya Sims, HORSE IDENTIFIER - Discharge Diagnosis/Problem(s) (1) Seizure-like activity SNOMED Code(s): 403324381 ICD Code: R56.9 - UNSPECIFIED CONVULSIONS Status: Acute Current Visit: Yes - Patient Instructions Diet: Regular Diet as Tolerated Activity: Apply Ice Driving: Do Not Drive Showering/Bathing: May Shower Other/Special Instructions: Recheck with Sonya Sims in 1 week. Patient not to drive until she sees her primary provider - Discharge Plan Home Medications: Home Meds DULoxetine [Cymbalta] 120 mg PO DAILY 07/04/20 [History] Zolpidem [Ambien] 10 mg PO BEDTIME PRN 07/04/20 [History] hydrOXYzine HCL [hydrOXYzine] 25 mg PO TID PRN 07/04/20 [History] SUMAtriptan [Imitrex] 50 mg PO ASDIRECTED PRN 07/05/20 [History] Topiramate [Topamax] 50 mg PO BEDTIME 07/05/20 [History] Patient Handouts: Fall Prevention in Hospitals, Adult, Seizure, Adult, [id number], Venous Thromboembolism Prevention Forms: ED Department Discharge Referrals: Sonya Sims NP [Primary Care Provider] - - Discharge Summary/Plan Comment DC Time >30 min.: No - Patient Data Vitals - Most Recent: Last Vital Signs Temp 98 F 07/05/20 00:00 Pulse 63 07/05/20 00:00 Resp 18 07/05/20 00:00 BP 133/91 H 07/05/20 00:00 Pulse Ox 98 07/05/20 00:00 Weight - Most Recent: 283 lb 3 oz Med Orders - Current: Current Medications Acetaminophen (Tylenol) 650 mg PO Q4H PRN PRN Reason: Pain (Mild 1-3)/fever Last Admin: 07/05/20 05:12 Dose: 650 mg Documented by: Duloxetine HCl (Cymbalta) 60 mg PO DAILY IDA Last Admin: 07/05/20 08:40 Dose: 60 mg Documented by: Hydroxyzine HCl (Atarax) 25 mg PO TID PRN PRN Reason: ANXIETY Sodium Chloride (Saline Flush) 10 ml FLUSH ASDIRECTED PRN PRN Reason: Keep Vein Open Last Admin: 07/04/20 03:39 Dose: 10 ml Documented by: Topiramate (Topamax) 50 mg PO BEDTIME IDA Last Admin: 07/04/20 20:11 Dose: 50 mg Documented by: Zolpidem Tartrate (Ambien) 5 mg PO BEDTIME PRN PRN Reason: Sleep Last Admin: 07/04/20 21:54 Dose: 5 mg Documented by: Discontinued Medications Hydroxyzine HCl (Atarax) 25 mg PO TID IDA Levetiracetam 1,500 mg/ Sodium (Chloride) 115 mls @ 400 mls/hr IV ONETIME ONE Stop: 07/04/20 03:42 Last Admin: 07/04/20 03:38 Dose: 400 mls/hr Documented by: Levetiracetam 1,500 mg/ Sodium (Chloride) 115 mls @ 400 mls/hr IV Q12H IDA Last Admin: 07/04/20 04:20 Dose: Not Given Documented by: Lorazepam (Ativan) 2 mg IVPUSH ONETIME ONE Stop: 07/04/20 03:22 Last Admin: 07/04/20 03:10 Dose: 2 mg Documented by: Ondansetron HCl (Zofran) 4 mg IV Q4H PRN PRN Reason: Nausea/Vomiting Senna/Docusate Sodium (Senna Plus) 1 tab PO BID PRN PRN Reason: Constipation Sumatriptan Succinate (Imitrex) 100 mg PO ONETIME ONE Stop: 07/04/20 16:29 Last Admin: 07/04/20 17:04 Dose: 100 mg Documented by: Zolpidem Tartrate (Ambien) 10 mg PO BEDTIME PRN PRN Reason: Sleep Last Admin: 07/04/20 04:55 Dose: 10 mg Documented by:
== END 2020-07-05 10:00 | disposition home or self-care (01) ==
LOC: FB.ED 02:59 → FB.MS 04:08
PROVIDERS: ADMIT Emergency Medicine; ATTEND Family Medicine
DX: R56.9 Unspecified convulsions (principal); G43.909 Migraine, unspecified, not intractable, without status migrainosus; F32.9 Major depressive disorder, single episode, unspecified; G47.00 Insomnia, unspecified; J45.909 Unspecified asthma, uncomplicated; Z98.84 Bariatric surgery status; Z79.899 Other long term (current) drug therapy; Z90.49 Acquired absence of other specified parts of digestive tract; Z98.890 Other specified postprocedural states
CPT/HCPCS: 36415; 70450; 71045; 80053; 80305; 80307; 81001; 81025; 84443; 85025; 96365; 96375; 99217; 99219; 99284; 99285; A9270; G0378; J1953; J2060